=== PATIENT | female | born 1975 | race African-American/Black ===

== ENCOUNTER 2018-02-05 02:22 | Emergency (ER) | payer MEDICAID, OTHER ==
[~2018-02-05] VITALS: Ht 152.4 cm; Wt 91.0 kg
[2018-02-05] MEDS ORDERED: MORPHINE SULFATE 4 MG/ML CPJ (NOT FOR IM USE) IV STA ×2 (03:21→12:17)
[2018-02-05] MEDS ORDERED: ONDANSETRON HCL 4MG/2ML VIAL IV STA ×2 (03:21→12:17)
[2018-02-05] MEDS ORDERED: SODIUM CHLORIDE 0.9% 1,000 ML IV ONE ×2 (03:21→08:15)
[2018-02-05] MEDS ORDERED: TETANUS, DIPHTHERIA, PERTUSSIS VAC/PF 0.5ML (>7YR OLD) IM ONE (03:30)
[2018-02-05] MEDS ORDERED: CEFAZOLIN 1000MG PREMIX 50 ML IV ONE (03:30)
[2018-02-05] MEDS ORDERED: LIDOCAINE HCL/EPINEPHRINE 1%-EPI 1:100,000 20 ML VIAL INFIL ONE (03:30)
[2018-02-05] MEDS ORDERED: BACITRACIN ZINC OINT UDPKT TOP ONE (03:30)
[2018-02-05] MEDS ORDERED: ONDANSETRON HCL 4MG/2ML VIAL IV ONE (04:30)
[2018-02-05] MEDS ORDERED: ONDANSETRON HCL 4MG/2ML VIAL ONE (04:38)
[2018-02-05 04:40] LABS: CHLORIDE 113 mEq/L (98-107)
[2018-02-05] MEDS ORDERED: FENTANYL CITRATE/PF 50MCG/ML 2ML VIAL IV ONE (05:00)
[2018-02-05] MEDS ORDERED: IOHEXOL-300 100 ML BOTTLE ONE (05:03)
[2018-02-05] MEDS ORDERED: LIDOCAINE HCL/PF 1% 10 MG/ML 5ML VIAL IJ NR (05:30)
[2018-02-05] MEDS ORDERED: LIDOCAINE HCL 1%/EPI 1:200,000 30 ML VIAL MC ONE (07:15)
[2018-02-05] MEDS ORDERED: LIDOCAINE HCL 1% 20ML VIAL (Pyxis) INJ MC ONE (07:30)
[2018-02-05] MEDS ORDERED: BACITRACIN ZINC 15GM TUBE TOP ONE (11:45)
[2018-02-05] MEDS ORDERED: HYDROCODONE/ACETAMINOPHEN 5/325MG TABLET PO ONE (11:45)
[2018-02-05 12:41] VITALS: BP 116/77
== END 2018-02-05 12:41 | disposition home or self-care (01) ==
LOC: ER 02:35
DX: S01.511A Laceration without foreign body of lip, initial encounter (principal); S01.81XA Laceration without foreign body of other part of head, initial encounter; S41.012A Laceration without foreign body of left shoulder, initial encounter; S41.011A Laceration without foreign body of right shoulder, initial encounter; S01.411A Laceration without foreign body of right cheek and temporomandibular area, initial encounter; F17.200 Nicotine dependence, unspecified, uncomplicated; Z90.710 Acquired absence of both cervix and uterus; Y04.0XXA Assault by unarmed brawl or fight, initial encounter; Y93.89 Activity, other specified; Y92.018 Other place in single-family (private) house as the place of occurrence of the external cause
CPT/HCPCS: 12001; 12017; 36415; 70450; 70486; 71045; 72125; 74177; 80048; 86850; 86900; 86901; 90471; 90715; 96361; 96365; 96375; 96376; 99285; A4217; J0690; J2270; J2405; J3010; J3490; J7030; Q9967; Z7610

== ENCOUNTER 2022-11-24 12:42 | Emergency (ER) | payer MEDICAID ==
[~2022-11-24] VITALS: Ht 160 cm; Wt 86.0 kg
[2022-11-24 12:46] VITALS: BP 168/96
[2022-11-24] MEDS ORDERED: KETOROLAC 30MG/ML VIAL IV ONE (15:30)
[2022-11-24] MEDS ORDERED: ACETAMINOPHEN 325MG TABLET PO ONE ×2 (15:30→15:45)
[2022-11-24] MEDS ORDERED: CEFTRIAXONE 2 G PREMIX 50 ML IV ONE (15:30)
[2022-11-24] MEDS ORDERED: CEFTRIAXONE SODIUM 1 G/VIAL IM ONE (15:45)
[2022-11-24] MEDS ORDERED: KETOROLAC 30MG/ML VIAL IM ONE (15:45)
[2022-11-24] MEDS ORDERED: LIDOCAINE HCL/PF 1% 10 MG/ML 5ML VIAL INFIL ONE (15:45)
[2022-11-24] MEDS ORDERED: NAPR-681 MT (15:55)
[2022-11-24] MEDS ORDERED: CLIN-116 PO (15:55)
[2022-11-24] MEDS ORDERED: ACET-2708 MT (15:55)
[2022-11-24] MEDS ORDERED: LACT1CAP68 MT (15:57)
== END 2022-11-24 17:09 | disposition home or self-care (01) ==
LOC: ER 12:50
DX: K04.7 Periapical abscess without sinus (principal); Z90.710 Acquired absence of both cervix and uterus; Z88.0 Allergy status to penicillin
CPT/HCPCS: 96372; 99284; J0696; J1885; J3490; Z7610

== ENCOUNTER 2023-03-09 10:39 | Emergency (ER) | payer MEDICAID ==
[~2023-03-09] VITALS: Ht 165.1 cm; Wt 86.1 kg
[~2023-03-09 10:39] MED LIST: ACET-2708 MT; CLIN-116 PO; LACT1CAP68 MT; NAPR-681 MT
[2023-03-09 10:44] VITALS: BP 131/69
[2023-03-09] MEDS ORDERED: BENZ100C86 MT (11:24)
== END 2023-03-09 12:01 | disposition home or self-care (01) ==
LOC: ER 10:39
DX: J06.9 Acute upper respiratory infection, unspecified (principal); Z88.0 Allergy status to penicillin
CPT/HCPCS: 71045; 99283